=== PATIENT | male | born 1980 | race Caucasian/White ===

== ENCOUNTER 2022-05-02 21:44 | Inpatient (IN) | payer OTHER ==
[~2022-05-02] VITALS: Ht 182.9 cm; Wt 94.8 kg
[~2022-05-02 21:44] MED LIST: ALDACTONE25 MG PO; BUPRENORPHIN-N1 EACH SL; CHANTIX1 MG PO; COREG25 MG PO; DIOVAN 80 MG TA80 MG PO; ECOTRIN81 MG PO; EFFEXOR 37.537.5 MG PO; EFFIENT10 MG PO; ELAVIL 10 MG TA10 MG PO; IMDUR ER TAB 6060 MG PO; ISOSORBIDE MONO60 MG PO; LASIX 40 MG TAB40 MG PO; LEVAQUIN750 MG PO; LIPITOR80 MG PO; LISINOPRIL30 MG PO; MEDROL4 MG PO; NEURONTIN 300300 MG PO; NICOTINE PATCH1 EACH TD; VALSARTAN160 MG PO; ZOFRAN ODT 4 MG4 MG PO
[2022-05-03 01:10] LABS: RED BLOOD COUNT 4.52 M/UL (4.20-5.50); WHITE BLOOD COUNT 6.6 K/UL (4.5-11.0)
[2022-05-03 01:48] LABS: BUN/CREATININE RATIO 19 (0-10)
[2022-05-03] MEDS ORDERED: GABAPENTIN600 MG PO (04:45)
[2022-05-03] MEDS ORDERED: MONTELUKAST SOD10 MG PO (10:43)
[2022-05-03] MEDS ORDERED: FUROSEMIDE40 MG PO (10:43)
[2022-05-03] MEDS ORDERED: ALLOPURINOL100 MG PO (10:43)
[2022-05-03] MEDS ORDERED: LISINOPRIL40 MG PO (10:43)
[2022-05-03] MEDS ORDERED: ESOMEPRAZOLE MA20 MG PO (10:43)
[2022-05-04 04:39] LABS: HEMOGLOBIN 12.2 gm/dl (14.0-17.5); RED BLOOD COUNT 4.19 M/UL (4.20-5.50); WHITE BLOOD COUNT 5.9 K/UL (4.5-11.0)
[2022-05-04 04:58] LABS: BUN/CREATININE RATIO 20 (0-10)
[2022-05-04] MEDS ORDERED: NITROGLYCERIN0.4 MG SL (14:37)
[2022-05-04] MEDS ORDERED: NICOTINE PATCH1 EAC1 TOP ×2 (14:37→15:14)
[2022-05-04] MEDS ORDERED: K-TAB ER10 MEQ PO (14:40)
[2022-05-04] MEDS ORDERED: HYDRALAZINE HCL25 MG PO (15:21)
[2022-05-04] MEDS ORDERED: ISOSORBIDE MONO60 MG PO (18:31)
[2022-05-04] MEDS ORDERED: LIPITOR80 MG PO (18:31)
[2022-05-04] MEDS ORDERED: LISINOPRIL40 MG PO (18:31)
[2022-05-04] MEDS ORDERED: MONTELUKAST SOD10 MG PO (18:31)
[2022-05-04] MEDS ORDERED: COREG25 MG PO (18:31)
[2022-05-04] MEDS ORDERED: EFFIENT10 MG PO (18:31)
[2022-05-04] MEDS ORDERED: ECOTRIN81 MG PO (18:31)
[2022-05-04] MEDS ORDERED: ESOMEPRAZOLE MA20 MG PO (18:31)
[2022-05-04] MEDS ORDERED: FUROSEMIDE40 MG PO (18:31)
[2022-05-04] MEDS ORDERED: ALLOPURINOL100 MG PO (18:31)
== END 2022-05-04 18:17 | disposition home or self-care (01) | DRG 281 ==
LOC: PROG CARE 05-03 00:17
PROVIDERS: Internal Medicine; Physician Assistant; ADMIT Internal Medicine
PROC: 4A023N7 Measurement of Cardiac Sampling and Pressure, Left Heart, Percutaneous Approach (ICD-10-PCS; principal; 2022-05-04)
PROC: B2111ZZ Fluoroscopy of Multiple Coronary Arteries using Low Osmolar Contrast (ICD-10-PCS; 2022-05-04)
PROC: B24BZZZ Ultrasonography of Heart with Aorta (ICD-10-PCS; 2022-05-04)
DX: I21.4 Non-ST elevation (NSTEMI) myocardial infarction (principal); I16.1 Hypertensive emergency; I16.0 Hypertensive urgency; I10 Essential (primary) hypertension; I25.10 Atherosclerotic heart disease of native coronary artery without angina pectoris; E78.5 Hyperlipidemia, unspecified; F17.210 Nicotine dependence, cigarettes, uncomplicated; K21.9 Gastro-esophageal reflux disease without esophagitis; E87.6 Hypokalemia; J30.9 Allergic rhinitis, unspecified; M10.9 Gout, unspecified; Z79.82 Long term (current) use of aspirin; Z79.899 Other long term (current) drug therapy; Z95.5 Presence of coronary angioplasty implant and graft
CPT/HCPCS: ECHO; 36415; 80048; 80061; 82550; 82553; 83036; 83735; 84132; 84439; 84484; 85025; 85027; 85610; 85730; 93005; 93306; C1769; J1644; J2250; J3010; J7040; Q9967